=== PATIENT | female | born 1945 | race Caucasian/White ===

== ENCOUNTER → 2017-05-23 | Outpatient (CLI) | payer OTHER ==
[2015-11-18 15:40] VITALS: BP 136/70
[~2017-05-23] MED LIST: ACET325T9 PO; AMLO10TA2 PO; ATOR20TA PO; BUSP15TA PO; DESO60CR13 TP; DOCU-109 PO; ENOX40DI SQ; FENO145T2 PO; FERR-26 PO; FLUT1DIS5 IH; GABA-586 PO; GUAI5SYR PO; HYDR-2762 PO; INSU100I13 SQ; LABE100T3 PO; LACT1CAP19 PO; LEVO500T59 PO; METF500T4 PO; MINE120C TP; MULT-114 PO; NITR100C62 PO; PANT40TA3 PO; POLY17PO29 PO; RITO100T PO; SITA1TAB7 PO; TRAM50TA PO; VENL225T PO; VENL75CA PO; VENTOLIN HFA18 GM IH
[2017-05-23 07:49] LABS: BASO # 0.1 x10^3/uL (0.0-0.2); BASO % 1 % (0-3); EOS % 5 % (0-3); HEMOGLOBIN 9.6 g/dL (12.0-15.5); LYMPH # 1.4 x10^3/uL (1.0-4.8); LYMPH % 16 % (24-48); MEAN CORPUSCULAR HEMOGLOBIN 28 pg (25-35); MEAN CORPUSCULAR HGB CONC 32 g/dL (31-37); MEAN CORPUSCULAR VOLUME 87 fL (79-100); MONO % 9 % (0-9); NEUT % 68 % (31-73); PLATELET COUNT 332 x10^3/uL (140-400); RED BLOOD COUNT 3.43 x10^6/uL (3.50-5.40); RED CELL DISTRIBUTION WIDTH 16.3 % (11.5-14.5)
[2017-05-23 08:00] LABS: ALBUMIN 2.2 g/dL (3.4-5.0); ALBUMIN/GLOBULIN RATIO 0.7 (1.0-1.7); CALCIUM 8.6 mg/dL (8.5-10.1); CREATININE 0.9 mg/dL (0.6-1.0); GFR 61.9; POTASSIUM 5.1 mmol/L (3.5-5.1); TOTAL BILIRUBIN 0.2 mg/dL (0.2-1.0); TOTAL PROTEIN 5.4 g/dL (6.4-8.2)
== END | disposition home or self-care (01) ==
LOC: SPEC 07:38
PROVIDERS: ATTEND Family Medicine
DX: J44.9 Chronic obstructive pulmonary disease, unspecified (principal); D64.9 Anemia, unspecified; R53.83 Other fatigue; Z79.899 Other long term (current) drug therapy
CPT/HCPCS: 36415; 80053; 85025

== ENCOUNTER 2017-06-06 22:08 | Inpatient (IN) | payer OTHER ==
[~2017-06-06] VITALS: Ht 165.1 cm; Wt 62.7 kg
[~2017-06-06 22:08] MED LIST changes: -ACET325T9 PO; -ATOR20TA PO; -DESO60CR13 TP; -ENOX40DI SQ; -FLUT1DIS5 IH; -GUAI5SYR PO; -LABE100T3 PO; -LACT1CAP19 PO; -LEVO500T59 PO; -MINE120C TP; -MULT-114 PO; -POLY17PO29 PO
--- NOTE | 2017-06-06 23:02 | PHYS DOC ---
Past Medical History Past Medical History: Arthritis, Asthma, Bronchitis, COPD, Diabetes-Type II, Fibromyalgia, Hypertension, Migraines Past Surgical History: Other Additional Past Surgical Histo: COLON RESECTION W/ BLEEDING & BLOOD TRANSFUSION Alcohol Use: None Drug Use: Marijuana Adult General Chief Complaint Chief Complaint: FATIGUE HPI HPI Patient is a 71 year old female who presents with complaint of generalized malaise. The patient was sent to the emergency department from [facility] after patient was having worsening weakness. Patient was noted to be having fever at the facility. Patient was pretreated with Tylenol prior to arrival. The patient was recently placed at the group home [facility] for rehabilitation care. The patient underwent abdominal surgery resulting in a bowel resection and new colostomy approximately 3 weeks ago at [facility]. The patient states that she has been healing well from her surgery and did not start having trouble until the last 24 hours. Patient denies any chest pain, abdominal pain, cough or shortness of breath. Patient states that she just feels very fatigued all over and is unable to get up or ambulate under her own power due to her current symptoms. Review of Systems Review of Systems Constitutional: Fever, malaise[] Eyes: Denies change in visual acuity, redness, or eye pain [] HENT: Denies nasal congestion or sore throat [] Respiratory: Denies cough or shortness of breath [] Cardiovascular: Denies chest pain or edema[] GI: Denies abdominal pain, nausea, vomiting, bloody stools or diarrhea [] : Denies dysuria or hematuria [] Musculoskeletal: Denies back pain or joint pain [] Integument: Denies rash or skin lesions [] Neurologic: Denies headache, focal weakness or sensory changes [] All other systems were reviewed and found to be within normal limits, except as documented in this note. Current Medications Current Medications Current Medications Medications (Trade) Dose Ordered Sig/Sharonda Start Time Stop Time Status Last Admin Dose Admin Sodium Chloride 1,000 ml @ 840 mls/hr Q1H12M 06/06/17 23:00 06/07/17 00:59 06/06/17 23:56 840 MLS/HR Allergies Allergies Allergies Coded Allergies Type Severity Reaction Last Updated Verified Penicillins Allergy Severe Anaphylaxis 10/28/13 Yes codeine Allergy Severe Anaphylaxis 10/28/13 Yes erythromycin base Allergy Severe Anaphylaxis 10/28/13 Yes morphine Allergy Severe Anaphylaxis 10/28/13 Yes tetracycline Allergy Severe Anaphylaxis 06/06/17 Yes Physical Exam Physical Exam Constitutional: Alert, afebrile, no acute distress. [] HENT: Normocephalic, atraumatic, bilateral external ears normal, oropharynx dry , no oral exudates, nose normal. [] Eyes: PERRLA, EOMI, conjunctiva normal, no discharge. [] Neck: Normal range of motion, no tenderness, supple, no stridor. [] Cardiovascular:Heart rate regular rhythm, no murmur [] Lungs & Thorax: Bilateral breath sounds clear to auscultation [] Abdomen: Left-sided colostomy appears pink, midline abdominal incision dressings clean, dry, and intact, no surrounding erythema, soft, no tenderness. [] Skin: Warm, dry, no erythema, no rash. [] Back: No tenderness, no CVA tenderness. [] Extremities: No tenderness, no cyanosis, no clubbing, ROM intact, no edema. [] Neurologic: Alert and oriented X 3, normal motor function, normal sensory function, no focal deficits noted. [] Current Patient Data Vital Signs Vital Signs Date Time Temp Pulse Resp B/P (MAP) Pulse Ox O2 Delivery O2 Flow Rate FiO2 06/06/17 22:15 97.7 84 22 104/64 (77) 92 Room Air 97.7 Lab Values Laboratory Tests Test 06/06/17 22:58 06/06/17 23:20 Urine Collection Type U cath Urine Color Yellow Urine Clarity Clear Urine pH 5.5 Urine Specific [place] 1.020 Urine Protein 100 mg/dL (NEG-TRACE) Urine Glucose (UA) Negative mg/dL (NEG) Urine Ketones (Stick) Negative mg/dL (NEG) Urine Blood Negative (NEG) Urine Nitrite Negative (NEG) Urine Bilirubin Negative (NEG) Urine Urobilinogen Dipstick 0.2 mg/dL (0.2 mg/dL) Urine Leukocyte Esterase Small (NEG) Urine RBC 0 /HPF (0-2) Urine WBC 1-4 /HPF (0-4) Urine Squamous Epithelial Cells Few /LPF Urine Amorphous Sediment Present /HPF Urine Bacteria 0 /HPF (0-FEW) Urine Hyaline Casts Occasional /HPF Urine Mucus Slight /LPF White Blood Count 20.4 x10^3/uL (4.0-11.0) H Red Blood Count 3.74 x10^6/uL (3.50-5.40) Hemoglobin 10.5 g/dL (12.0-15.5) L Hematocrit 32.2 % (36.0-47.0) L Mean Corpuscular Volume 86 fL (79-100) Mean Corpuscular Hemoglobin 28 pg (25-35) Mean Corpuscular Hemoglobin Concent 33 g/dL (31-37) Red Cell Distribution Width 17.0 % (11.5-14.5) H Platelet Count 295 x10^3/uL (140-400) Neutrophils (%) (Auto) 80 % (31-73) H Lymphocytes (%) (Auto) 9 % (24-48) L Monocytes (%) (Auto) 7 % (0-9) Eosinophils (%) (Auto) 3 % (0-3) Basophils (%) (Auto) 1 % (0-3) Neutrophils # (Auto) 16.3 x10^3uL (1.8-7.7) H Lymphocytes # (Auto) 1.9 x10^3/uL (1.0-4.8) Monocytes # (Auto) 1.3 x10^3/uL (0.0-1.1) H Eosinophils # (Auto) 0.6 x10^3/uL (0.0-0.7) Basophils # (Auto) 0.2 x10^3/uL (0.0-0.2) Platelet Estimate Pending Sodium Level 136 mmol/L (136-145) Potassium Level 4.0 mmol/L (3.5-5.1) Chloride Level 99 mmol/L (98-107) Carbon Dioxide Level 30 mmol/L (21-32) Anion Gap 7 (6-14) Blood Urea Nitrogen 36 mg/dL (7-20) H Creatinine 1.3 mg/dL (0.6-1.0) H Estimated GFR (Cockcroft-Gault) 40.5 BUN/Creatinine Ratio 28 (6-20) H Glucose Level 229 mg/dL (70-99) H Lactic Acid Level 1.9 mmol/L (0.4-2.0) Calcium Level 8.9 mg/dL (8.5-10.1) Total Bilirubin 0.2 mg/dL (0.2-1.0) Aspartate Amino Transferase (AST) 10 U/L (15-37) L Alanine Aminotransferase (ALT) 18 U/L (14-59) Alkaline Phosphatase 99 U/L (46-116) Total Protein 6.0 g/dL (6.4-8.2) L Albumin 2.5 g/dL (3.4-5.0) L Albumin/Globulin Ratio 0.7 (1.0-1.7) L Laboratory Tests 06/06/17 23:20 Laboratory Tests 06/06/17 23:20 EKG EKG Interpreted by me: Heart rate 85, sinus rhythm, normal intervals, normal axis, no acute ST/T-wave abnormalities present[] Radiology/Procedures Radiology/Procedures One view AP chest x-ray interpreted by me: Right lower lobe infiltrate, normal cardiac silhouette, no effusion[] Course & Med Decision Making Course & Med Decision Making Pertinent Labs and Imaging studies reviewed. (See chart for details) Patient started on IV fluids in the emergency department. Patient's x-ray shows evidence of pneumonia. The patient was started on Merrem, Levaquin, and vancomycin for coverage of healthcare associated pneumonia. The patient was admitted to Dr. Carnes for further care. Dragon Disclaimer Dragon Disclaimer This electronic medical record was generated, in whole or in part, using a voice recognition dictation system. Departure Departure Impression: Primary Impression: Healthcare-associated pneumonia Additional Impressions: Uncontrolled diabetes mellitus Severe protein-calorie malnutrition Disposition: ADMITTED INPATIENT Admitting Physician: Sylvie Carnes Condition: STABLE Referrals: DESEAN MARTINEZ (PCP) Problem Qualifiers Additional Impressions: Uncontrolled diabetes mellitus Diabetes mellitus type: type 2 Diabetes mellitus complication status: with hyperglycemia Diabetes mellitus intermediate project manager insulin use: unspecified intermediate project manager insulin use status Qualified Codes: E11.65 - Type 2 diabetes mellitus with hyperglycemia BRYANT CORBIN MD Jun 06, 2017 23:02
[2017-06-06 23:04] LABS: BILIRUBIN,URINE NEGATIVE (NEG); GLUCOSE,URINE NEGATIVE (NEG); NITRITE,URINE NEGATIVE (NEG); PH,URINE 5.5; PROTEIN,URINE 100 mg/dL (NEG-TRACE); UROBILINOGEN,URINE 0.2 mg/dL (0.2 mg/dL)
[2017-06-06 23:16] LABS: BACTERIA,URINE 0 /HPF (0-FEW); RBC,URINE 0 /HPF (0-2); SQUAMOUS EPITHELIAL CELL,UR FEW /LPF
[2017-06-06 23:32] LABS: BASO # 0.2 x10^3/uL (0.0-0.2); BASO % 1 % (0-3); EOS % 3 % (0-3); HEMATOCRIT 32.2 % (36.0-47.0); HEMOGLOBIN 10.5 g/dL (12.0-15.5); LYMPH # 1.9 x10^3/uL (1.0-4.8); LYMPH % 9 % (24-48); MEAN CORPUSCULAR HEMOGLOBIN 28 pg (25-35); MEAN CORPUSCULAR HGB CONC 33 g/dL (31-37); MEAN CORPUSCULAR VOLUME 86 fL (79-100); MONO % 7 % (0-9); NEUT % 80 % (31-73); PLATELET COUNT 295 x10^3/uL (140-400); RED BLOOD COUNT 3.74 x10^6/uL (3.50-5.40); WHITE BLOOD COUNT 20.4 x10^3/uL (4.0-11.0)
[2017-06-06 23:43] LABS: CALCIUM 8.9 mg/dL (8.5-10.1); CREATININE 1.3 mg/dL (0.6-1.0); GFR 40.5
[2017-06-06 23:49] LABS: ALBUMIN 2.5 g/dL (3.4-5.0); ALBUMIN/GLOBULIN RATIO 0.7 (1.0-1.7); TOTAL BILIRUBIN 0.2 mg/dL (0.2-1.0)
[2017-06-06] MEDS: IV NORMAL SALINE 1000ML BAG 1,000 ML IV SCH (23:56)
[2017-06-07] VITALS (7 sets, daily range): BP systolic 122–151; BP diastolic 60–77
[2017-06-07] MEDS ORDERED: levOFLOXacin PER PHARMACY. MC PRN (00:15)
[2017-06-07] MEDS ORDERED: ACETAMINOPHEN 325 MG TABLET. PO PRN ×2 (00:30→08:30)
[2017-06-07] MEDS ORDERED: fentaNYL PF VIAL 100 MCG/2 ML VIAL IV PRN (00:30)
[2017-06-07] MEDS ORDERED: ONDANSETRON PF 4 MG/2 ML VIAL. IV PRN ×2 (00:30→08:30)
[2017-06-07] MEDS ORDERED: IPRATRPIUM/ALBUTEROL 0.5/2.5MG 3 ML NEBU. ONE (01:54)
[2017-06-07] MEDS ORDERED: VANCOMYCIN 1.5 GM in IV DEXTROSE 5% 500 ML IV ONE (02:00)
[2017-06-07] MEDS: IV NORMAL SALINE 1000ML BAG 1,000 ML IV SCH ×4 (02:24→18:30)
[2017-06-07 03:19] LABS: % EOS 1 % (0-5); PLT ESTIMATE ADEQUATE (ADEQUATE)
[2017-06-07] MEDS: VANCOMYCIN PER PHARMACY MC PRN (03:25)
[2017-06-07] MEDS ORDERED: DESO60CR13 TP (04:03)
[2017-06-07] MEDS ORDERED: ATOR20TA PO (04:03)
[2017-06-07] MEDS ORDERED: LABE100T3 PO (04:03)
[2017-06-07] MEDS ORDERED: FLUT1DIS5 IH (04:03)
[2017-06-07] MEDS ORDERED: ACET325T9 PO (04:03)
[2017-06-07] MEDS ORDERED: ENOX40DI SQ (04:03)
[2017-06-07] MEDS ORDERED: POLY17PO29 PO (04:03)
[2017-06-07] MEDS ORDERED: MINE120C TP (04:03)
[2017-06-07] MEDS ORDERED: MULT-114 PO (04:03)
[2017-06-07] MEDS: MEROPENEM 1 GM in IV NORMAL SALINE 100ML 100 ML IV SCH ×2 (05:53→18:30)
[2017-06-07] MEDS ORDERED: MEROPENEM 1 GM in IV NORMAL SALINE 100ML 100 ML IV SCH (06:00)
--- NOTE | 2017-06-07 07:53 | EKG ---
[facility] [address] [place] [id number] Test Date: 2017-06-06 Test Time: 22:43:30 Pat Name: BRITT FLOREZ Department: Room: 6 1 Gender: F Family Health Nurse Practitioner: : [id number] Requested By: BRYANT CORBIN Order Number: [id number] Reading MD: Brad Hoffman MD Measurements Intervals [place] Rate: 84 P: 56 MO: 134 QRS: 82 QRSD: 80 T: 54 QT: 336 QTc: 400 Interpretive Statements SINUS RHYTHM CONSISTENT WITH ANTEROSEPTAL INFARCT PROBABLY OLD Electronically Signed On 06-09-2017 9:52:23 OCCUPATIONAL THERAPY PROFESSOR by Brad Hoffman MD
[2017-06-07] MEDS ORDERED: IPRATRPIUM/ALBUTEROL 0.5/2.5MG 3 ML NEBU. NEB SCH (08:00)
--- NOTE | 2017-06-07 08:01 | RAD ---
EXAM: Chest, single view. HISTORY: Fever. COMPARISON: 11/17/2015. FINDINGS: A frontal view of the chest is obtained. There is right perihilar and infrahilar opacity likely due to atelectasis or interstitial infiltrate. There is no consolidation, effusion or pneumothorax. The heart is normal in size. IMPRESSION: Right perihilar and infrahilar opacity due to atelectasis or interstitial infiltrate.
[2017-06-07] MEDS ORDERED: guaiFENesin DM 200MG/20MG 10 ML SYRUP PO PRN (08:30)
[2017-06-07] MEDS ORDERED: traMADol 50 MG TABLET PO PRN (08:30)
[2017-06-07] MEDS ORDERED: busPIRone 10 MG TABLET. PO PRN (09:00)
[2017-06-07] MEDS: LACTOBACILLUS RHAMNOSUS GG 1 CAPSULE. PO SCH ×2 (09:47→21:10)
[2017-06-07] MEDS: GABAPENTIN 300 MG CAPSULE. PO SCH ×2 (09:48→21:10)
[2017-06-07] MEDS: PANTOPRAZOLE 40 MG TABLET.DR. PO SCH (09:48)
[2017-06-07] MEDS: amLODIPine BESYLATE 10 MG TABLET PO SCH (09:48)
[2017-06-07] MEDS: MULTIVITAMIN with MINERAL TABLET. PO SCH (09:49)
[2017-06-07] MEDS: LABETALOL HCL 100 MG TABLET. PO SCH ×2 (09:49→21:10)
[2017-06-07] MEDS: ENOXAPARIN 40 MG/0.4 ML SYRINGE. SQ SCH (09:50)
[2017-06-07] MEDS: POLYETHYLENE GLYCOL 3350 17 GM PACKET. PO SCH ×2 (10:11→21:00)
[2017-06-07] MEDS: FLUOCINONIDE 0.05% TOPICAL CREAM 15 GM TUBE. TP SCH ×2 (10:12→21:11)
[2017-06-07] MEDS: MINERAL OIL/PETROLATUM TOPICAL CREAM 113GM JAR. TP SCH ×2 (10:12→21:10)
[2017-06-07] MEDS: VENLAFAXINE 75 MG TABLET. PO SCH ×3 (10:23→21:10)
[2017-06-07] MEDS: BUDESONIDE 0.5 MG/2 ML NEBU. NEB SCH ×2 (11:13→19:47)
[2017-06-07] MEDS: ALBUTEROL SULFATE 2.5 MG/3 ML NEBU. NEB SCH ×4 (11:14→19:47)
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
--- NOTE | 2017-06-07 13:58 | PDOC ---
Infectious Disease Note Vital Sign Vital Signs Vital Signs Date Time Temp Pulse Resp B/P (MAP) Pulse Ox O2 Delivery O2 Flow Rate FiO2 06/07/17 11:15 Nasal Cannula 2.0 06/07/17 11:00 97.9 61 18 125/70 (88) 99 97.9 Labs Lab Laboratory Tests Test 06/06/17 22:58 06/06/17 23:20 06/07/17 05:10 Urine Collection Type U cath Urine Color Yellow Urine Clarity Clear Urine pH 5.5 Urine Specific [place] 1.020 Urine Protein 100 mg/dL (NEG-TRACE) Urine Glucose (UA) Negative mg/dL (NEG) Urine Ketones (Stick) Negative mg/dL (NEG) Urine Blood Negative (NEG) Urine Nitrite Negative (NEG) Urine Bilirubin Negative (NEG) Urine Urobilinogen Dipstick 0.2 mg/dL (0.2 mg/dL) Urine Leukocyte Esterase Small (NEG) Urine RBC 0 /HPF (0-2) Urine WBC 1-4 /HPF (0-4) Urine Squamous Epithelial Cells Few /LPF Urine Amorphous Sediment Present /HPF Urine Bacteria 0 /HPF (0-FEW) Urine Hyaline Casts Occasional /HPF Urine Mucus Slight /LPF White Blood Count 20.4 x10^3/uL (4.0-11.0) Red Blood Count 3.74 x10^6/uL (3.50-5.40) Hemoglobin 10.5 g/dL (12.0-15.5) Hematocrit 32.2 % (36.0-47.0) Mean Corpuscular Volume 86 fL (79-100) Mean Corpuscular Hemoglobin 28 pg (25-35) Mean Corpuscular Hemoglobin Concent 33 g/dL (31-37) Red Cell Distribution Width 17.0 % (11.5-14.5) Platelet Count 295 x10^3/uL (140-400) Neutrophils (%) (Auto) 80 % (31-73) Lymphocytes (%) (Auto) 9 % (24-48) Monocytes (%) (Auto) 7 % (0-9) Eosinophils (%) (Auto) 3 % (0-3) Basophils (%) (Auto) 1 % (0-3) Neutrophils # (Auto) 16.3 x10^3uL (1.8-7.7) Lymphocytes # (Auto) 1.9 x10^3/uL (1.0-4.8) Monocytes # (Auto) 1.3 x10^3/uL (0.0-1.1) Eosinophils # (Auto) 0.6 x10^3/uL (0.0-0.7) Basophils # (Auto) 0.2 x10^3/uL (0.0-0.2) Segmented Neutrophils % 86 % (35-66) Band Neutrophils % 1 % (0-9) Lymphocytes % 11 % (24-48) Monocytes % 1 % (0-10) Eosinophils % 1 % (0-5) Platelet Estimate Adequate (ADEQUATE) Sodium Level 136 mmol/L (136-145) Potassium Level 4.0 mmol/L (3.5-5.1) Chloride Level 99 mmol/L (98-107) Carbon Dioxide Level 30 mmol/L (21-32) Anion Gap 7 (6-14) Blood Urea Nitrogen 36 mg/dL (7-20) Creatinine 1.3 mg/dL (0.6-1.0) Estimated GFR (Cockcroft-Gault) 40.5 BUN/Creatinine Ratio 28 (6-20) Glucose Level 229 mg/dL (70-99) Lactic Acid Level 1.9 mmol/L (0.4-2.0) 1.6 mmol/L (0.4-2.0) Calcium Level 8.9 mg/dL (8.5-10.1) Total Bilirubin 0.2 mg/dL (0.2-1.0) Aspartate Amino Transf (AST/SGOT) 10 U/L (15-37) Alanine Aminotransferase (ALT/SGPT) 18 U/L (14-59) Alkaline Phosphatase 99 U/L (46-116) Total Protein 6.0 g/dL (6.4-8.2) Albumin 2.5 g/dL (3.4-5.0) Albumin/Globulin Ratio 0.7 (1.0-1.7) Objective Assessment HCAP Leukocytosis Multiple abx allergies: PCN, tetra & erythromycin causing anaphylactic reaction s/p bowel resection and ostomy at [facility] 3 weeks ago. Reportedly dx stage 4 colon cancer Renal insufficiency h/o MRSA Plan Plan of Care vanc, meropenem and Levaquin Influenza screen pending f/u am labs and cultures PT/OT D/w daughter Thank you [phone] Attending Co-Sign The patient was seen and interviewed as well as examined at the bedside. The chart was reviewed. The case was discussed. Agree with the plan of care. MICHEL MCCURDY APRN Jun 07, 2017 13:58 CECE HE MD Jun 07, 2017 16:21
[2017-06-07 14:18] LABS: OBC FLU VALID
[2017-06-07] MEDS: HYDROcodone/APAP 7.5/325MG 1 TAB TABLET PO PRN (19:49)
[2017-06-07] MEDS: ATORVASTATIN CALCIUM 20 MG TABLET PO SCH (21:10)
[2017-06-07] MEDS ORDERED: VANCOMYCIN 1 GM in IV DEXTROSE 5% 250 ML IV SCH (23:00)
[2017-06-08 03:00] VITALS: BP 167/74
[2017-06-08 05:43] LABS: BASO # 0.1 x10^3/uL (0.0-0.2); BASO % 1 % (0-3); EOS % 6 % (0-3); HEMATOCRIT 26.4 % (36.0-47.0); HEMOGLOBIN 8.5 g/dL (12.0-15.5); LYMPH # 1.2 x10^3/uL (1.0-4.8); LYMPH % 10 % (24-48); MEAN CORPUSCULAR HEMOGLOBIN 28 pg (25-35); MEAN CORPUSCULAR HGB CONC 32 g/dL (31-37); MEAN CORPUSCULAR VOLUME 87 fL (79-100); MONO % 7 % (0-9); NEUT % 77 % (31-73); PLATELET COUNT 237 x10^3/uL (140-400); RED BLOOD COUNT 3.03 x10^6/uL (3.50-5.40); RED CELL DISTRIBUTION WIDTH 16.9 % (11.5-14.5); WHITE BLOOD COUNT 12.3 x10^3/uL (4.0-11.0)
[2017-06-08 06:04] LABS: CALCIUM 7.9 mg/dL (8.5-10.1); CREATININE 0.9 mg/dL (0.6-1.0); GFR 61.9; POTASSIUM 3.6 mmol/L (3.5-5.1)
[2017-06-08] MEDS: MEROPENEM 1 GM in IV NORMAL SALINE 100ML 100 ML IV SCH ×2 (06:13→17:24)
[2017-06-08 07:00] VITALS: BP 126/69
[2017-06-08] MEDS: BUDESONIDE 0.5 MG/2 ML NEBU. NEB SCH ×2 (07:47→19:25)
[2017-06-08] MEDS: ALBUTEROL SULFATE 2.5 MG/3 ML NEBU. NEB SCH ×4 (07:48→19:25)
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
[2017-06-08] MEDS: PANTOPRAZOLE 40 MG TABLET.DR. PO SCH (09:32)
[2017-06-08] MEDS: VENLAFAXINE 75 MG TABLET. PO SCH ×3 (09:33→20:09)
[2017-06-08] MEDS: POLYETHYLENE GLYCOL 3350 17 GM PACKET. PO SCH ×2 (09:33→20:17)
[2017-06-08] MEDS: LACTOBACILLUS RHAMNOSUS GG 1 CAPSULE. PO SCH ×2 (09:33→20:09)
[2017-06-08] MEDS: GABAPENTIN 300 MG CAPSULE. PO SCH ×2 (09:34→20:09)
[2017-06-08] MEDS: amLODIPine BESYLATE 10 MG TABLET PO SCH (09:34)
[2017-06-08] MEDS: MULTIVITAMIN with MINERAL TABLET. PO SCH (09:34)
[2017-06-08] MEDS: LABETALOL HCL 100 MG TABLET. PO SCH ×2 (09:35→20:10)
[2017-06-08] MEDS: MINERAL OIL/PETROLATUM TOPICAL CREAM 113GM JAR. TP SCH ×2 (09:36→20:12)
[2017-06-08] MEDS: ENOXAPARIN 40 MG/0.4 ML SYRINGE. SQ SCH (09:36)
[2017-06-08] MEDS: FLUOCINONIDE 0.05% TOPICAL CREAM 15 GM TUBE. TP SCH ×2 (09:36→20:12)
--- NOTE | 2017-06-08 10:48 | PDOC ---
PROGRESS NOTES Chief Complaint Chief Complaint Assessment/Plan 1. HAP 2. Acute respi failure sec to above 3. SIRS POA< infectious no organ dysfcn 4, MOd pCM 5. GEn weakness, high fall risk 6,. Indwelling colostomy bag 7. JO 8. NALLELY, VMN - creat 1.3 9. ANemia of chronic dse History of Present Illness History of Present Illness Asleep did not awaken NUmbers better WBC from 20 down to12 with overnight HAP coverage Was in [facility] NO fevers Willing to do PT again if PT recs SNU - SW consulted (different dx this time)- was at [facility] for colostomy after [facility] admission, now its PNA/HAP Flu neg MRSA neg PLAN: November dc IVF Cont HAP coverage Follow Cx Await formal Eval by pT Vitals Vitals Vital Signs Date Time Temp Pulse Resp B/P (MAP) Pulse Ox O2 Delivery O2 Flow Rate FiO2 06/08/17 09:35 96 126/69 06/08/17 07:50 95 Nasal Cannula 2.0 06/08/17 07:00 98.3 18 98.3 Physical Exam General: Alert, Oriented X3, Cooperative, No acute distress Abdomen: Normal bowel sounds, Soft, No tenderness, No hepatosplenomegaly, No masses Extremities: No clubbing, No cyanosis, No edema, Normal pulses, No tenderness/ swelling Skin: No rashes, No breakdown, No significant lesion Labs LABS Laboratory Tests Test 06/07/17 13:38 06/08/17 04:45 Influenza Type A Antigen Negative (NEGATIVE) Influenza Type B Antigen Negative (NEGATIVE) White Blood Count 12.3 x10^3/uL (4.0-11.0) Red Blood Count 3.03 x10^6/uL (3.50-5.40) Hemoglobin 8.5 g/dL (12.0-15.5) Hematocrit 26.4 % (36.0-47.0) Mean Corpuscular Volume 87 fL (79-100) Mean Corpuscular Hemoglobin 28 pg (25-35) Mean Corpuscular Hemoglobin Concent 32 g/dL (31-37) Red Cell Distribution Width 16.9 % (11.5-14.5) Platelet Count 237 x10^3/uL (140-400) Neutrophils (%) (Auto) 77 % (31-73) Lymphocytes (%) (Auto) 10 % (24-48) Monocytes (%) (Auto) 7 % (0-9) Eosinophils (%) (Auto) 6 % (0-3) Basophils (%) (Auto) 1 % (0-3) Neutrophils # (Auto) 9.4 x10^3uL (1.8-7.7) Lymphocytes # (Auto) 1.2 x10^3/uL (1.0-4.8) Monocytes # (Auto) 0.9 x10^3/uL (0.0-1.1) Eosinophils # (Auto) 0.7 x10^3/uL (0.0-0.7) Basophils # (Auto) 0.1 x10^3/uL (0.0-0.2) Sodium Level 141 mmol/L (136-145) Potassium Level 3.6 mmol/L (3.5-5.1) Chloride Level 108 mmol/L (98-107) Carbon Dioxide Level 25 mmol/L (21-32) Anion Gap 8 (6-14) Blood Urea Nitrogen 20 mg/dL (7-20) Creatinine 0.9 mg/dL (0.6-1.0) Estimated GFR (Cockcroft-Gault) 61.9 Glucose Level 192 mg/dL (70-99) Calcium Level 7.9 mg/dL (8.5-10.1) Review of Systems Review of Systems asleep Assessment and Plan Assessmemt and Plan Problems Medical Problems: (1) Healthcare-associated pneumonia Status: Acute (2) Severe protein-calorie malnutrition Status: Acute (3) Uncontrolled diabetes mellitus Status: Acute Problems: Comment Review of Relevant I have reviewed the following items nandini (where applicable) has been applied. Labs Laboratory Tests Test 06/06/17 22:58 06/06/17 23:20 06/07/17 02:45 06/07/17 05:10 Urine Collection Type U cath Urine Color Yellow Urine Clarity Clear Urine pH 5.5 Urine Specific [place] 1.020 Urine Protein 100 mg/dL (NEG-TRACE) Urine Glucose (UA) Negative mg/dL (NEG) Urine Ketones (Stick) Negative mg/dL (NEG) Urine Blood Negative (NEG) Urine Nitrite Negative (NEG) Urine Bilirubin Negative (NEG) Urine Urobilinogen Dipstick 0.2 mg/dL (0.2 mg/dL) Urine Leukocyte Esterase Small (NEG) Urine RBC 0 /HPF (0-2) Urine WBC 1-4 /HPF (0-4) Urine Squamous Epithelial Cells Few /LPF Urine Amorphous Sediment Present /HPF Urine Bacteria 0 /HPF (0-FEW) Urine Hyaline Casts Occasional /HPF Urine Mucus Slight /LPF White Blood Count 20.4 x10^3/uL (4.0-11.0) Red Blood Count 3.74 x10^6/uL (3.50-5.40) Hemoglobin 10.5 g/dL (12.0-15.5) Hematocrit 32.2 % (36.0-47.0) Mean Corpuscular Volume 86 fL (79-100) Mean Corpuscular Hemoglobin 28 pg (25-35) Mean Corpuscular Hemoglobin Concent 33 g/dL (31-37) Red Cell Distribution Width 17.0 % (11.5-14.5) Platelet Count 295 x10^3/uL (140-400) Neutrophils (%) (Auto) 80 % (31-73) Lymphocytes (%) (Auto) 9 % (24-48) Monocytes (%) (Auto) 7 % (0-9) Eosinophils (%) (Auto) 3 % (0-3) Basophils (%) (Auto) 1 % (0-3) Neutrophils # (Auto) 16.3 x10^3uL (1.8-7.7) Lymphocytes # (Auto) 1.9 x10^3/uL (1.0-4.8) Monocytes # (Auto) 1.3 x10^3/uL (0.0-1.1) Eosinophils # (Auto) 0.6 x10^3/uL (0.0-0.7) Basophils # (Auto) 0.2 x10^3/uL (0.0-0.2) Segmented Neutrophils % 86 % (35-66) Band Neutrophils % 1 % (0-9) Lymphocytes % 11 % (24-48) Monocytes % 1 % (0-10) Eosinophils % 1 % (0-5) Platelet Estimate Adequate (ADEQUATE) Sodium Level 136 mmol/L (136-145) Potassium Level 4.0 mmol/L (3.5-5.1) Chloride Level 99 mmol/L (98-107) Carbon Dioxide Level 30 mmol/L (21-32) Anion Gap 7 (6-14) Blood Urea Nitrogen 36 mg/dL (7-20) Creatinine 1.3 mg/dL (0.6-1.0) Estimated GFR (Cockcroft-Gault) 40.5 BUN/Creatinine Ratio 28 (6-20) Glucose Level 229 mg/dL (70-99) Lactic Acid Level 1.9 mmol/L (0.4-2.0) 1.6 mmol/L (0.4-2.0) Calcium Level 8.9 mg/dL (8.5-10.1) Total Bilirubin 0.2 mg/dL (0.2-1.0) Aspartate Amino Transf (AST/SGOT) 10 U/L (15-37) Alanine Aminotransferase (ALT/SGPT) 18 U/L (14-59) Alkaline Phosphatase 99 U/L (46-116) Total Protein 6.0 g/dL (6.4-8.2) Albumin 2.5 g/dL (3.4-5.0) Albumin/Globulin Ratio 0.7 (1.0-1.7) Nasal Screen MRSA (PCR) Negative (Negative) Test 06/07/17 13:38 06/08/17 04:45 Influenza Type A Antigen Negative (NEGATIVE) Influenza Type B Antigen Negative (NEGATIVE) White Blood Count 12.3 x10^3/uL (4.0-11.0) Red Blood Count 3.03 x10^6/uL (3.50-5.40) Hemoglobin 8.5 g/dL (12.0-15.5) Hematocrit 26.4 % (36.0-47.0) Mean Corpuscular Volume 87 fL (79-100) Mean Corpuscular Hemoglobin 28 pg (25-35) Mean Corpuscular Hemoglobin Concent 32 g/dL (31-37) Red Cell Distribution Width 16.9 % (11.5-14.5) Platelet Count 237 x10^3/uL (140-400) Neutrophils (%) (Auto) 77 % (31-73) Lymphocytes (%) (Auto) 10 % (24-48) Monocytes (%) (Auto) 7 % (0-9) Eosinophils (%) (Auto) 6 % (0-3) Basophils (%) (Auto) 1 % (0-3) Neutrophils # (Auto) 9.4 x10^3uL (1.8-7.7) Lymphocytes # (Auto) 1.2 x10^3/uL (1.0-4.8) Monocytes # (Auto) 0.9 x10^3/uL (0.0-1.1) Eosinophils # (Auto) 0.7 x10^3/uL (0.0-0.7) Basophils # (Auto) 0.1 x10^3/uL (0.0-0.2) Sodium Level 141 mmol/L (136-145) Potassium Level 3.6 mmol/L (3.5-5.1) Chloride Level 108 mmol/L (98-107) Carbon Dioxide Level 25 mmol/L (21-32) Anion Gap 8 (6-14) Blood Urea Nitrogen 20 mg/dL (7-20) Creatinine 0.9 mg/dL (0.6-1.0) Estimated GFR (Cockcroft-Gault) 61.9 Glucose Level 192 mg/dL (70-99) Calcium Level 7.9 mg/dL (8.5-10.1) Laboratory Tests Test 06/07/17 13:38 06/08/17 04:45 Influenza Type A Antigen Negative (NEGATIVE) Influenza Type B Antigen Negative (NEGATIVE) White Blood Count 12.3 x10^3/uL (4.0-11.0) Red Blood Count 3.03 x10^6/uL (3.50-5.40) Hemoglobin 8.5 g/dL (12.0-15.5) Hematocrit 26.4 % (36.0-47.0) Mean Corpuscular Volume 87 fL (79-100) Mean Corpuscular Hemoglobin 28 pg (25-35) Mean Corpuscular Hemoglobin Concent 32 g/dL (31-37) Red Cell Distribution Width 16.9 % (11.5-14.5) Platelet Count 237 x10^3/uL (140-400) Neutrophils (%) (Auto) 77 % (31-73) Lymphocytes (%) (Auto) 10 % (24-48) Monocytes (%) (Auto) 7 % (0-9) Eosinophils (%) (Auto) 6 % (0-3) Basophils (%) (Auto) 1 % (0-3) Neutrophils # (Auto) 9.4 x10^3uL (1.8-7.7) Lymphocytes # (Auto) 1.2 x10^3/uL (1.0-4.8) Monocytes # (Auto) 0.9 x10^3/uL (0.0-1.1) Eosinophils # (Auto) 0.7 x10^3/uL (0.0-0.7) Basophils # (Auto) 0.1 x10^3/uL (0.0-0.2) Sodium Level 141 mmol/L (136-145) Potassium Level 3.6 mmol/L (3.5-5.1) Chloride Level 108 mmol/L (98-107) Carbon Dioxide Level 25 mmol/L (21-32) Anion Gap 8 (6-14) Blood Urea Nitrogen 20 mg/dL (7-20) Creatinine 0.9 mg/dL (0.6-1.0) Estimated GFR (Cockcroft-Gault) 61.9 Glucose Level 192 mg/dL (70-99) Calcium Level 7.9 mg/dL (8.5-10.1) Microbiology 06/07/17 Blood Culture - Preliminary, Resulted NO GROWTH AFTER 1 DAY Medications Current Medications Sodium Chloride 1,000 ml @ 840 mls/hr Q1H12M IV Last administered on 23:56; Start 06/06/17 at 23:00; Stop 06/07/17 at 00:59; Status DC Vancomycin HCl (Vanco Per Pharmacy) 1 each PRN DAILY PRN MC SEE COMMENTS Last administered on 06/07/17 03:25; Start 06/07/17 at 00:15 Levofloxacin/ Dextrose (Levaquin Per Pharmacy) 1 each PRN DAILY PRN MC SEE COMMENTS; Start 06/07/17 at 00:15 Meropenem 1 gm/ Sodium Chloride 100 ml @ 200 mls/hr Q8HRS IV ; Start 06/07/17 at 06:00; Status UNV Ondansetron HCl (Zofran) 4 mg PRN Q8HRS PRN IV NAUSEA/VOMITING; Start at 00:30; Stop 06/07/17 at 08:53; Status DC Fentanyl Citrate (Fentanyl 2ml Vial) 50 mcg PRN Q2HR PRN IV SEVERE PAIN; Start 06/07/17 at 00:30; Stop 06/08/17 at 00:29; Status DC Sodium Chloride 1,000 ml @ 125 mls/hr Q8H IV Last administered on 06/07/17 18:30; Start 06/07/17 at 00:16; Stop 06/08/17 at 00:15; Status DC Acetaminophen (Tylenol) 650 mg PRN Q4HRS PRN PO FEVER; Start 06/07/17 at 00:30 ; Stop 06/07/17 at 08:49; Status DC Albuterol/ Ipratropium (Duoneb) 3 ml RTQID NEB Last administered on 06/07/17 01:58; Start 06/07/17 at 08:00; Stop 06/07/17 at 09:08; Status DC Levofloxacin/ Dextrose 150 ml @ 150 mls/hr 1X ONCE IV Last administered on 00:52; Start 06/07/17 at 01:00; Stop 06/07/17 at 01:59; Status DC Vancomycin HCl 1.5 gm/Dextrose 500 ml @ 250 mls/hr 1X ONCE IV Last administered on 06/07/17 01:11; Start 06/07/17 at 02:00; Stop 06/07/17 at 03 :59; Status DC Meropenem 1 gm/ Sodium Chloride 100 ml @ 200 mls/hr Q12H IV Last administered on 06/08/17 06:13; Start 06/07/17 at 06:00 Albuterol/ Ipratropium (Duoneb) 3 ml STK-MED ONCE .ROUTE ; Start 06/07/17 at 01 :54; Stop 06/07/17 at 01:55; Status DC Levofloxacin/ Dextrose 150 ml @ 100 mls/hr Q48H IV ; Start 06/08/17 at 22:00 Vancomycin HCl 1 gm/Dextrose 250 ml @ 250 mls/hr Q24H IV Last administered on 06/07/17 23:14; Start 06/07/17 at 23:00 Vancomycin HCl 1 each 1X ONCE MC ; Start 06/08/17 at 22:30; Stop 06/08/17 at 22:31 Lactobacillus Rhamnosus (Culturelle) 1 cap BID PO Last administered on 09:33; Start 06/07/17 at 09:00 Ondansetron HCl (Zofran) 4 mg PRN Q6HRS PRN IV NAUSEA/VOMITING; Start at 08:30 Guaifenesin (Robitussin Dm) 10 ml PRN Q6HRS PRN PO COUGH; Start 06/07/17 at 08 :30 Acetaminophen (Tylenol) 650 mg PRN Q4HRS PRN PO MILD PAIN / TEMP; Start at 08:30 Amlodipine Besylate (Norvasc) 10 mg DAILY PO Last administered on 06/08/17 09 :34; Start 06/07/17 at 09:00 Atorvastatin Calcium (Lipitor) 20 mg QHS PO Last administered on 06/07/17 21: 10; Start 06/07/17 at 21:00 Enoxaparin Sodium (Lovenox 40mg Syringe) 40 mg DAILY SQ Last administered on 09:36; Start 06/07/17 at 09:00 Acetaminophen/ Hydrocodone Bitart (Lortab 7.5/325) 1 tab PRN Q4HRS PRN PO PAIN Last administered on 06/07/17 19:49; Start 06/07/17 at 08:30 Labetalol HCl (Trandate) 100 mg BID PO Last administered on 06/08/17 09:35; Start 06/07/17 at 09:00 Multi-Ingred Cream/Lotion/Oil/ Oint (Hydrocerin) 1 yifan BID TP Last administered on 06/08/17 09:36; Start 06/07/17 at 09:00 Pantoprazole Sodium (Protonix) 40 mg DAILYAC PO Last administered on 09:32; Start 06/07/17 at 09:00 Polyethylene Glycol (miraLAX PACKET) 17 gm BID PO ; Start 06/07/17 at 09:00 Albuterol Sulfate (Ventolin Neb Soln) 2.5 mg RTQID NEB Last administered on 07:48; Start 06/07/17 at 09:30 Buspirone HCl (Buspar) 30 mg BID PRN PO ANXIETY; Start 06/07/17 at 09:00 Fluocinonide (Lidex) 1 yifan BID TP Last administered on 06/08/17 09:36; Start 06/07/17 at 09:30 Budesonide (Pulmicort) 0.5 mg RTBID NEB Last administered on 06/08/17 07:47; Start 06/07/17 at 09:30 Gabapentin (Neurontin) 600 mg BID PO Last administered on 06/08/17 09:34; Start 06/07/17 at 09:00 Multivitamins (Thera M Plus) 1 tab DAILY PO Last administered on 06/08/17 09: 34; Start 06/07/17 at 09:00 Venlafaxine HCl (Effexor) 75 mg TID PO Last administered on 06/08/17 09:33; Start 06/07/17 at 09:30 Tramadol HCl (Ultram) 50 mg PRN Q6HRS PRN PO PAIN; Start 06/07/17 at 08:30 Active Scripts Active Protonix (Pantoprazole Sodium) 40 Mg Tablet.dr 1 Tab PO DAILY Reported Tylenol (Acetaminophen) 325 Mg Tablet 2 Tab PO PRN Q4HRS Topicort (Desoximetasone) 60 Gm Cream..g. 60 Gm TP BID apply to top of both feet Multivitamins With Minerals (Multivitamin With Minerals) 1 Each Tablet 0.5 Each PO DAILY Miralax (Polyethylene Glycol 3350) 17 Gm Powd.pack 1 Packet PO BID Lovenox (Enoxaparin Sodium) 40 Mg/0.4 Ml Disp.syrin 40 Mg SQ DAILY Lipitor (Atorvastatin Calcium) 20 Mg Tablet 1 Tab PO QHS Labetalol Hcl 100 Mg Tablet 1 Tab PO BID Eucerin Creme (Mineral Oil/White Petrolatum) 120 Gm Cream..g. 1 Yifan TP BID apply to top of feet Advair 500-50 Diskus (Fluticasone/Salmeterol) 1 Each Disk.w.dev 1 Puff IH BID Ventolin Hfa Inhaler (Albuterol Sulfate) 18 Gm Hfa.aer.ad 2 Puff IH BID Amlodipine Besylate 10 Mg Tablet 10 Mg PO DAILY Metformin Hcl 500 Mg Tablet 1,000 Mg PO BID Venlafaxine Hcl Er (Venlafaxine Hcl) 225 Mg Tab.er.24 225 Tab PO DAILY Gabapentin 300 Mg Capsule 600 Mg PO BID Hydrocodone-Apap 7.5-325 (Hydrocodone Bit/Acetaminophen) 1 Each Tablet 1 Each PO Q4HRS PRN Buspirone Hcl 15 Mg Tablet 30 Mg PO BID Vitals/I & O Vital Sign - Last 24 Hours 06/07/17 06/07/17 06/07/17 06/07/17 11:00 11:15 14:48 15:21 Temp 97.9 98.0 97.9 98.0 Pulse 61 88 Resp 18 20 B/P (MAP) 125/70 (88) 139/77 (97) Pulse Ox 99 98 O2 Delivery Nasal Cannula Nasal Cannula Nasal Cannula O2 Flow Rate 2.0 2.0 2.0 2.0 06/07/17 06/07/17 06/07/17 06/07/17 19:00 19:49 19:50 20:00 Temp 100.2 100.2 Pulse 113 Resp 18 B/P (MAP) 146/68 (94) Pulse Ox 92 98 O2 Delivery Nasal Cannula Nasal Cannula Nasal Cannula Nasal Cannula O2 Flow Rate 2.0 2.0 2.0 2.0 06/07/17 06/07/17 06/07/17 06/08/17 20:49 21:10 22:51 03:00 Temp 98.6 98.1 98.6 98.1 Pulse 113 99 105 Resp 18 18 B/P (MAP) 146/68 132/66 (88) 167/74 (105) Pulse Ox 98 93 94 O2 Delivery Nasal Cannula Nasal Cannula Nasal Cannula O2 Flow Rate 2.0 2.0 2.0 06/08/17 06/08/17 06/08/17 06/08/17 07:00 07:50 07:50 09:34 Temp 98.3 98.3 Pulse 96 96 Resp 18 B/P (MAP) 126/69 (88) 126/69 Pulse Ox 94 95 95 O2 Delivery Nasal Cannula Nasal Cannula Nasal Cannula O2 Flow Rate 2.0 2.0 2.0 06/08/17 09:35 Pulse 96 B/P (MAP) 126/69 SETH DANIELS MD Jun 08, 2017 10:48
[2017-06-08 11:10] VITALS: BP_SYST 103; BP_SYST 150; BP_DIAS 60; BP_DIAS 63
--- NOTE | 2017-06-08 11:35 | PDOC ---
Infectious Disease Note Subjective Subjective Feeling better Hoping to go home soon Minimal cough Denies SOA or CP Fever Tmax 100.2 ROS ROS GEN: Denies fevers, chills, sweats GI: Denies n/v/d NEURO: Denies confusion, dizziness Vital Sign Vital Signs Vital Signs Date Time Temp Pulse Resp B/P (MAP) Pulse Ox O2 Delivery O2 Flow Rate FiO2 06/08/17 11:10 98.7 91 18 150/60 (90) 93 Nasal Cannula 2.0 98.7 Physical Exam PHYSICAL EXAM GENERAL: Lying down, relaxed appearance LUNGS: Fine crackles bilaterally. Nonlabored. HEART: Normal S1 and S2. ABDOMEN: Bowel sounds active. Soft and nontender. Left-sided ostomy with brown stool. Midline abdominal incision slightly with minimal drainage. No redness. Along both sides of incision, localized pustular-type rash noted, stable EXTREMITIES: No gross edema or cyanosis. SKIN: Warm to touch. NEUROLOGIC: Alert and oriented x 3. Moves all extremities. PIV Labs Lab Laboratory Tests Test 06/07/17 13:38 06/08/17 04:45 Influenza Type A Antigen Negative (NEGATIVE) Influenza Type B Antigen Negative (NEGATIVE) White Blood Count 12.3 x10^3/uL (4.0-11.0) Red Blood Count 3.03 x10^6/uL (3.50-5.40) Hemoglobin 8.5 g/dL (12.0-15.5) Hematocrit 26.4 % (36.0-47.0) Mean Corpuscular Volume 87 fL (79-100) Mean Corpuscular Hemoglobin 28 pg (25-35) Mean Corpuscular Hemoglobin Concent 32 g/dL (31-37) Red Cell Distribution Width 16.9 % (11.5-14.5) Platelet Count 237 x10^3/uL (140-400) Neutrophils (%) (Auto) 77 % (31-73) Lymphocytes (%) (Auto) 10 % (24-48) Monocytes (%) (Auto) 7 % (0-9) Eosinophils (%) (Auto) 6 % (0-3) Basophils (%) (Auto) 1 % (0-3) Neutrophils # (Auto) 9.4 x10^3uL (1.8-7.7) Lymphocytes # (Auto) 1.2 x10^3/uL (1.0-4.8) Monocytes # (Auto) 0.9 x10^3/uL (0.0-1.1) Eosinophils # (Auto) 0.7 x10^3/uL (0.0-0.7) Basophils # (Auto) 0.1 x10^3/uL (0.0-0.2) Sodium Level 141 mmol/L (136-145) Potassium Level 3.6 mmol/L (3.5-5.1) Chloride Level 108 mmol/L (98-107) Carbon Dioxide Level 25 mmol/L (21-32) Anion Gap 8 (6-14) Blood Urea Nitrogen 20 mg/dL (7-20) Creatinine 0.9 mg/dL (0.6-1.0) Estimated GFR (Cockcroft-Gault) 61.9 Glucose Level 192 mg/dL (70-99) Calcium Level 7.9 mg/dL (8.5-10.1) Micro BLOOD CULTURE Preliminary NO GROWTH AFTER 1 DAY Objective Assessment HCAP - Influenza neg Leukocytosis, improved Multiple abx allergies: PCN, tetra & erythromycin causing anaphylactic reaction s/p bowel resection and ostomy at [facility] 3 weeks ago. Reportedly dx stage 4 colon cancer Renal insufficiency h/o MRSA Plan Plan of Care vanc, meropenem and Levaquin Probiotics f/u cultures PT/OT Attending Co-Sign The patient was seen and interviewed as well as examined at the bedside. The chart was reviewed. The case was discussed. Agree with the plan of care. MICHEL MCCURDY APRN Jun 08, 2017 11:35 CECE HE MD Jun 08, 2017 15:06
[2017-06-08 15:00] VITALS: BP 140/70
[2017-06-08] MEDS: VANCOMYCIN PER PHARMACY MC PRN (15:25)
[2017-06-08 19:00] VITALS: BP 145/68
[2017-06-08] MEDS: ATORVASTATIN CALCIUM 20 MG TABLET PO SCH (20:09)
[2017-06-08] MEDS: HYDROcodone/APAP 7.5/325MG 1 TAB TABLET PO PRN (20:09)
[2017-06-08 23:00] VITALS: BP 123/68
[2017-06-09] MEDS ORDERED: VANCOMYCIN 1 GM in IV DEXTROSE 5% 250 ML IV SCH ×2
[2017-06-09] MEDS: VANCOMYCIN PER PHARMACY MC PRN (00:10)
[2017-06-09 02:54] VITALS: BP 118/63
[2017-06-09] MEDS: MEROPENEM 1 GM in IV NORMAL SALINE 100ML 100 ML IV SCH (06:19)
[2017-06-09 07:40] VITALS: BP 128/69
[2017-06-09] MEDS: BUDESONIDE 0.5 MG/2 ML NEBU. NEB SCH (07:44)
[2017-06-09] MEDS: ALBUTEROL SULFATE 2.5 MG/3 ML NEBU. NEB SCH ×2 (07:44→11:57)
[2017-06-09] MEDS: ENOXAPARIN 40 MG/0.4 ML SYRINGE. SQ SCH (09:05)
[2017-06-09] MEDS: GABAPENTIN 300 MG CAPSULE. PO SCH (09:05)
[2017-06-09] MEDS: amLODIPine BESYLATE 10 MG TABLET PO SCH (09:06)
[2017-06-09] MEDS: FLUOCINONIDE 0.05% TOPICAL CREAM 15 GM TUBE. TP SCH (09:06)
[2017-06-09] MEDS: VENLAFAXINE 75 MG TABLET. PO SCH ×2 (09:06→14:00)
[2017-06-09] MEDS: MULTIVITAMIN with MINERAL TABLET. PO SCH (09:06)
[2017-06-09] MEDS: POLYETHYLENE GLYCOL 3350 17 GM PACKET. PO SCH (09:06)
[2017-06-09] MEDS: MINERAL OIL/PETROLATUM TOPICAL CREAM 113GM JAR. TP SCH (09:06)
[2017-06-09] MEDS: PANTOPRAZOLE 40 MG TABLET.DR. PO SCH (09:06)
[2017-06-09] MEDS: LABETALOL HCL 100 MG TABLET. PO SCH (09:06)
[2017-06-09] MEDS: LACTOBACILLUS RHAMNOSUS GG 1 CAPSULE. PO SCH (09:06)
[2017-06-09] MEDS: HYDROcodone/APAP 7.5/325MG 1 TAB TABLET PO PRN (09:12)
--- NOTE | 2017-06-09 09:18 | PDOC ---
PROGRESS NOTES Chief Complaint Chief Complaint Fever, weakness ASSESSMENT AND PLAN: 1. Sepsis: fever, tachycardia resolved, leukocytosis improving 2. HAP: vanco, meropenem and Levaquin probiotics; ID following 3. NALLELY: vasomotor nephropathy. resolved 4. Protein calorie malnutrition: mod. protein supplements 5. Colon CA: s/p resection with ostomy w/in past month 6. Anemia: stable; due acute (post surgery) and chronic blood loss, inflammation 7. DM2: not oprimally controlled. add ISS Dispo: History of Present Illness History of Present Illness much improved. wants to go home rather than SNF Vitals Vitals Vital Signs Date Time Temp Pulse Resp B/P (MAP) Pulse Ox O2 Delivery O2 Flow Rate FiO2 06/09/17 07:46 96 Nasal Cannula 2.0 06/09/17 07:40 97.4 96 18 128/69 (88) 97.4 Physical Exam General: Alert, Oriented X3, Cooperative, No acute distress Abdomen: Normal bowel sounds, Soft, No tenderness, No hepatosplenomegaly, No masses Extremities: No clubbing, No cyanosis, No edema, Normal pulses, No tenderness/ swelling Skin: No rashes, No breakdown, No significant lesion Labs LABS Laboratory Tests Test 06/08/17 22:30 Vancomycin Level Trough 9.8 mcg/mL (10.0-20.0) Vancomycin Last Dose Date 06/07/17 Vancomycin Last Dose Time 2300 STEPHANY REESE MD Jun 09, 2017 09:18
[2017-06-09] MEDS ORDERED: DEXTROSE 50% 25 GM / 50ML DISP.SYRIN. IV PRN (09:30)
[2017-06-09 10:21] LABS: BASO # 0.1 x10^3/uL (0.0-0.2); BASO % 1 % (0-3); EOS % 7 % (0-3); HEMATOCRIT 28.6 % (36.0-47.0); HEMOGLOBIN 9.3 g/dL (12.0-15.5); LYMPH % 10 % (24-48); MEAN CORPUSCULAR HEMOGLOBIN 28 pg (25-35); MEAN CORPUSCULAR HGB CONC 33 g/dL (31-37); MEAN CORPUSCULAR VOLUME 87 fL (79-100); MONO % 8 % (0-9); NEUT % 75 % (31-73); PLATELET COUNT 253 x10^3/uL (140-400); RED BLOOD COUNT 3.28 x10^6/uL (3.50-5.40); RED CELL DISTRIBUTION WIDTH 16.6 % (11.5-14.5)
[2017-06-09 10:45] VITALS: BP 144/56
[2017-06-09] MEDS ORDERED: GUAI5SYR PO (11:54)
[2017-06-09] MEDS ORDERED: LEVO500T59 PO (11:54)
[2017-06-09] MEDS ORDERED: LACT1CAP19 PO (11:54)
[2017-06-09] MEDS ORDERED: INSULIN ASPART 300 UNITS/3 ML INSULN.PEN SQ SCH (12:00)
[2017-06-09 14:25] VITALS: BP 115/63
--- NOTE | 2017-06-11 17:31 | DS ---
DATE OF DISCHARGE: 06/09/2017 CHIEF COMPLAINT: Fever, weakness. HISTORY OF PRESENT ILLNESS: The patient is a 71-year-old woman who presented with above complaints. She was found with tachycardia and leukocytosis and admitted for sepsis. By x-rays, this was consistent with pneumonia, which was deemed to be healthcare associated given her recent exposure to healthcare facilities, coming from rehabilitation. She was treated with antibiotics including vancomycin, meropenem, and Levaquin under ID service guidance. She significantly improved with treatment. All symptoms essentially resolved. Mild vasomotor nephropathy, resolved with IV fluids as well. She was diagnosed with moderate protein calorie malnutrition for which protein supplements were administered. Anemia, which was multifactorial including a recent colon surgery and chronic blood loss as well as acute inflammation, stayed essentially stable. Insulin was monitored with insulin sliding scale as well as her home regimen. She was followed by occupational and physical therapy and was deemed to be appropriate for discharge to home rather than to further rehabilitation. PHYSICAL EXAMINATION: VITAL SIGNS: Show blood pressure of 128/69, heart rate of 96, respiratory rate at 18. GENERAL: Alert and oriented, in no acute distress. LUNGS: Clear. HEART: Regular rate and rhythm. ABDOMEN: Positive bowel sounds, no tenderness, incision well healing, ostomy in place. EXTREMITIES: Without any edema. SKIN: Without rash. DISCHARGE DIAGNOSES: Healthcare-associated pneumonia, sepsis. DISCHARGE DISPOSITION: To home with home health. DISCHARGE CONDITION: Improved. DISCHARGE MEDICATIONS: Please refer to MAR. DISCHARGE INSTRUCTIONS: The patient will follow up with her GI surgeon as previously arranged as well as her primary care physician in 1-2 weeks. Greater than 30 minutes were spent ni arranging discharge. STEPHANY REESE MD DR: PERRY/nts JOB#: [id number] / [id number] DESEAN Nuñez
== END 2017-06-09 14:30 | disposition home health service (06) | DRG 871 ==
LOC: ER 22:08 → 5 NORTH 06-07 00:15
PROVIDERS: ADMIT Internal Medicine; ATTEND Internal Medicine
DX: A41.9 Sepsis, unspecified organism (principal); E43 Unspecified severe protein-calorie malnutrition; N17.0 Acute kidney failure with tubular necrosis; J18.9 Pneumonia, unspecified organism; E11.65 Type 2 diabetes mellitus with hyperglycemia; D50.0 Iron deficiency anemia secondary to blood loss (chronic); C64.9 Malignant neoplasm of unspecified kidney, except renal pelvis; F12.90 Cannabis use, unspecified, uncomplicated; J44.0 Chronic obstructive pulmonary disease with (acute) lower respiratory infection; G47.30 Sleep apnea, unspecified; I10 Essential (primary) hypertension; K21.9 Gastro-esophageal reflux disease without esophagitis; M79.7 Fibromyalgia; F41.8 Other specified anxiety disorders; G43.909 Migraine, unspecified, not intractable, without status migrainosus; M19.90 Unspecified osteoarthritis, unspecified site; Y95 Nosocomial condition; Z82.3 Family history of stroke; Z82.49 Family history of ischemic heart disease and other diseases of the circulatory system; Z82.5 Family history of asthma and other chronic lower respiratory diseases; Z83.3 Family history of diabetes mellitus; Z85.038 Personal history of other malignant neoplasm of large intestine; Z86.14 Personal history of Methicillin resistant Staphylococcus aureus infection; Z87.891 Personal history of nicotine dependence; Z88.0 Allergy status to penicillin; Z88.1 Allergy status to other antibiotic agents; Z90.49 Acquired absence of other specified parts of digestive tract; Z91.81 History of falling; Z93.3 Colostomy status; Z88.8 Allergy status to other drugs, medicaments and biological substances; Z68.23 Body mass index [BMI] 23.0-23.9, adult
CPT/HCPCS: 36415; 51701; 71010; 80048; 80053; 80202; 81001; 83605; 85007; 85025; 87040; 87086; 87641; 87804; 93005; 94250; 94640; 94760; J1650; J1815; J1956; J2185; J3370; J7030; J7613; J7620; J7626; 99285-25